=== PATIENT | female | born 1950 | race African-American/Black ===

== ENCOUNTER → 2017-08-09 | Emergency (ER) | payer OTHER, MEDICAID ==
[~2017-08-09] VITALS: Ht 162.6 cm; Wt 97.9 kg
[~2017-08-09] MED LIST: ENALAPRIL-HCTZ1 EACH PO; FLEXERIL5 MG PO; HYDROCHLOROTHIA25 MG PO; Hydrodiuril,Oretic,E PO; LEVOTHYROXINE125 MCG PO; Levothroid,Synthroid PO; SYNTHROID100 MCG PO
[2017-08-09 23:08] LABS: HEMATOCRIT 33.5 % (36.0-46.0); MCH 25.6 PG (29.0-34.0); MCHC 32.8 G/DL (30.0-36.0); MCV 77.9 FL (83-99); PLATELET COUNT 227 K/uL (156-360); RBC DIS.WIDTH-CV 15.8 % (11.8-14.6); RBC DIS.WIDTH-SD 44.5 % (39-53); WHITE BLOOD COUNT 6.7 K/uL (4.1-10.2)
[2017-08-09 23:19] LABS: CHLORIDE 107 mEq/L (99-109); POTASSIUM 4.4 mEq/L (3.7-5.4); SODIUM 140 mEq/L (136-147)
[2017-08-09 23:21] LABS: GLUCOSE 120 mg/dL (70-99)
[2017-08-09 23:25] LABS: CREATININE 1.2 mg/dL (0.6-1.3); GFR ESTIMATE (CALCULATED) 57 mL/min/
[2017-08-09 23:26] LABS: UREA NITROGEN (BUN) 24 mg/dL (9-23)
[2017-08-09 23:29] LABS: TROP-I INTERPRETATION NEGATIVE; TROPONIN-I < 0.01 ng/mL (0.0-0.30)
[2017-08-10 07:50] LABS: TROP-I INTERPRETATION NEGATIVE; TROPONIN-I < 0.01 ng/mL (0.0-0.30)
[2017-08-10 09:42] VITALS: BP 150/89
== END | disposition home or self-care (01) ==
LOC: EME 22:13
PROVIDERS: Emergency Medicine
DX: R07.1 Chest pain on breathing (principal); R07.89 Other chest pain; M54.6 Pain in thoracic spine; R06.00 Dyspnea, unspecified; I10 Essential (primary) hypertension; E03.9 Hypothyroidism, unspecified
CPT/HCPCS: 71046; 80048; 84484; 85027; 85379; 93005; 99281; 99285

== ENCOUNTER 2017-09-02 23:41 | Emergency (ER) | payer OTHER, MEDICAID ==
[~2017-09-02] VITALS: Ht 162.6 cm; Wt 97.7 kg
[2017-09-03 01:24] LABS: HEMATOCRIT 34.6 % (36.0-46.0); HEMOGLOBIN 11.6 G/DL (11.9-15.5); MCH 26.4 PG (29.0-34.0); MCHC 33.5 G/DL (30.0-36.0); MCV 78.6 FL (83-99); PLATELET COUNT 251 K/uL (156-360); RBC DIS.WIDTH-CV 15.9 % (11.8-14.6); RBC DIS.WIDTH-SD 45.5 % (39-53); WHITE BLOOD COUNT 7.2 K/uL (4.1-10.2)
[2017-09-03 01:32] LABS: ALBUMIN 3.9 g/dL (3.2-4.8); CHLORIDE 102 mEq/L (99-109); POTASSIUM 4.5 mEq/L (3.7-5.4); SODIUM 136 mEq/L (136-147)
[2017-09-03 01:35] LABS: GLUCOSE 98 mg/dL (70-99); TOTAL PROTEIN 7.2 g/dL (6.4-8.3)
[2017-09-03 01:37] LABS: TOTAL BILIRUBIN 0.4 mg/dL (0.0-1.0)
[2017-09-03 01:38] LABS: ALKALINE PHOSPHATASE 78 IU/L (3-129); CREATININE 1.2 mg/dL (0.6-1.3); GFR ESTIMATE (CALCULATED) 57 mL/min/
[2017-09-03 01:40] LABS: AST (GOT) 23 IU/L (2-34); UREA NITROGEN (BUN) 26 mg/dL (9-23)
[2017-09-03 01:41] LABS: ALT (GPT) 18 IU/L (3-49)
[2017-09-03 02:44] LABS: TROP-I INTERPRETATION NEGATIVE; TROPONIN-I < 0.01 ng/mL (0.0-0.30)
[2017-09-03 02:54] LABS: APPEARANCE CLEAR ((CLEAR)); BILIRUBIN NEGATIVE; BLOOD NEGATIVE; COLOR YELLOW ((YELLOW)); GLUCOSE (STRIP) NEGATIVE; KETONES NEGATIVE; LEUKOCYTES SMALL; NITRITE NEGATIVE; PROTEIN (STRIP) NEGATIVE; SPECIFIC GRAVITY 1.009 (1.000-1.030); UROBILINOGEN 0.2 MG/DL (0.2-1.0)
[2017-09-03 03:31] LABS: BACTERIA RARE /HPF; EPITHELIAL CELLS RARE /HPF; MUCUS NONE SEEN /LPF; RED BLOOD CELLS 0-5 /HPF (0-5); UCUL ADDED? NO; WHITE BLOOD CELLS 0-5 /HPF (0-5)
[2017-09-03 04:20] VITALS: BP 113/65
[2017-09-03 09:14] LABS: THYROTROPIN (TSH) 4.2 MIU/L (0.4-5.5)
== END 2017-09-03 04:20 | disposition home or self-care (01) ==
LOC: EME 23:41
PROVIDERS: Physician Assistant
DX: R53.1 Weakness (principal); E86.0 Dehydration; I10 Essential (primary) hypertension; E03.9 Hypothyroidism, unspecified
CPT/HCPCS: 71046; 80048; 80053; 81003; 82948; 84443; 84484; 85027; 87502; 93005; 99281; 99285; J7030